=== PATIENT | female | born 1960 | race Caucasian/White ===

== ENCOUNTER 2019-10-31 21:36 | Emergency (ER) | payer OTHER, SELFPAY ==
[2019-10-31 21:37] VITALS: BP 139/73; PULSE 121; RESP 18; TEMP 37.1; O2SAT 100; BMI 42.7
--- NOTE | 2019-10-31 22:00 | RAD_ITS ---
STUDY: X-RAY CHEST REASON FOR EXAM: Female, 58 years old. PT WAS SEEN BY PCP AND HR WAS ELEVATED. BLOOD TEST ELEVATED D-DIMER. COUGH AND ELEVATED HR X 4 DAYS. TECHNIQUE: PA and lateral COMPARISON: None. FINDINGS: There appears to be mild nonspecific bilateral perihilar interstitial thickening. There is no focal infiltration.. There is no demonstrated pleural abnormality. Normal size heart. Normal mediastinum and cirilo. Normal visualized pulmonary arteries. Normal visualized aortic arch and descending thoracic aorta. Normal visualized thoracic spine. Normal visualized ribs, clavicles, and shoulders. There is no demonstrated abnormality of the visualized soft tissue structures of the upper abdomen. RAD/Chest PA and Lateral IMPRESSION: Mild nonspecific bilateral perihilar interstitial thickening. Electronically Signed: Michael Cintron MD at 22:18 EST , Service support ,
--- NOTE | 2019-10-31 23:14 | EKG12_ITS ---
Test Reason : CP Blood Pressure : / mmHG Vent. Rate : 127 BPM Atrial Rate : 127 BPM P-R Int : 138 ms QRS Dur : 070 ms QT Int : 318 ms P-R-T Axes : 028 -34 025 degrees QTc Int : 462 ms Sinus tachycardia Left axis deviation Minimal voltage criteria for LVH, may be normal variant Anterior infarct , age undetermined Abnormal ECG Confirmed by CAMDEN JEAN ([id number]), video news editor ALICIA JASON ([id number]) on 11/05/2019 2:56:47 PM Referred By: EDI Confirmed By:CAMDEN JEAN
--- NOTE | 2019-10-31 23:15 | ED.DCSUM_ITS ---
History of Present Illness Chief Complaint: Palpitations Informant: Patient Narrative: Stated that she has been having a cough for last 4 days. She has been feeling more fatigued than normal. She did get a flu shot. She is a non-smoker. She went to her doctor's office today for evaluation of that cough. She had a d- dimer done secondary to tachycardia. She found she was tachycardic in the office today. The d-dimer came back mildly elevated. Her family doctor put her on Eliquis and told her that they are planning to do an ultrasound in the future. She talked to her son at home who told her to come to the hospital for further evaluation. She denies chest pain or shortness of breath. She is on levothyroxine. She denies any pulmonary embolism risk factors. - Past Medical History (1) Microcalcification of left breast on mammography Status: Acute Past Medical History - Allergies and Home Meds Allergies/Adverse Reactions: Allergies Penicillins [PCN] Allergy (Verified 10/31/19 21:40) HIVES, DIFFICULTY BREATHING Sulfa (Sulfonamide Antibiotics) Allergy (Verified 10/31/19 21:40) Unknown red dye Adverse Reaction (Verified 10/31/19 21:40) HIVES, DIFFICULTY BREATHING Primary Care Physician: Daniel Nix DO [Primary Care Provider] - Prior records reviewed: Yes Past Medical History: - - Hypothyroidism, see problem list Surgical History: noncontributory Lives: With Family Smoking Status: Never smoker Alcohol: None Drugs: None Review of Systems General: Denies: Chills, Fever, Sweats Eyes: Denies: Visual changes - bilaterally, Diplopia ENT: Denies: Rhinorrhea, Sore throat Cardiovascular: Denies: Chest pain, Palpitations Respiratory: Reports: Cough. Denies: Dyspnea, Dyspnea on exertion Gastrointestinal: Denies: Abdominal pain, Nausea, Vomiting, Diarrhea, Melena, Hematochezia Genitourinary: Denies: Dysuria, Hematuria, Frequency Musculoskeletal: Denies: Back pain, Extremity Pain Skin: Denies: Rash, Wounds Neurological: Reports: Weakness. Denies: Headache, Numbness Physical Exam Vital Signs/Narrative: Vital Signs Temp Pulse Resp BP Pulse Ox 10/31/19 21:37 98.7 F 121 H 18 139/73 H 100 General: Well nourished, Well developed, No Acute Distress Head: Normocephalic, Atraumatic Eyes: Perrl, EOMI ENT: Moist mucous membranes, No rhinorrhea Neck: Supple, Nontender Cardiovascular: Regular rhythm, No murmurs, Tachycardia Respiratory: No distress, CTA bilaterally, Chest nontender Abdomen: Soft, Nontender, Nondistended, Normal bowel sounds Back: Nontender, Normal Inspection Extremities: Nontender, No edema Skin: Normal color, No rash Neurological: Alert, Oriented x3, Cranial nerves II-XII grossly intact, Normal Strength, Normal Sensation Psychological: Normal affect, Normal Mood Diagnostic/Tx/Re-eval - Medical Decision Making EKG obtained shows sinus tachycardia. This is from triage apparently currently she is tacky at 105. EKGs sinus tachycardia is at a rate of 127. No acute ischemic findings. No STEMI. Chest x-ray shows no acute disease. Lab work obtained. Given IV fluids. Lab work shows no significant abnormalities. Electrolytes unremarkable. CT angios shows no pulmonary embolism or other abnormalities other than interstitial prominence consistent with bronchitis. She does have a suspected hemangioma in her liver. She is going to follow-up for this as an outpatient. At this time I feel she can be discharged. I think she just has a bronchitis. Heart rate has come down into the 90s ED Disposition - Plan for ED Patient: Disposition: [facility] Hospital or Unit Diagnosis: Acute bronchitis Instructions: Acute Bronchitis Referrals: Daniel Nix DO [Primary Care Provider] - Additional Instructions: Please follow-up for your 4 cm liver lesion. We suspect a hemangioma.
[2019-10-31] MEDS: 0.9% Normal Saline 1,000 ML 1000 ML IV (23:21)
[2019-10-31 23:29] LABS: Absolute Lymphocyte Count 1.71 X10^3/uL (0.83-4.51); Basophil# 0.07 X10^3/uL; Basophil% 1.1 % (0-1); Eosinophil# 0.11 X10^3/uL; Eosinophils% 1.7 % (0-5); Hematocrit 45.2 % (37-47); Hemoglobin 14.8 g/dL (12.0-15.0); Lymphocyte # 1.71 X10^3/ul (4.0); Lymphocyte % 26.3 % (19-41); Mean Corp Hgb Conc 32.7 g/dL (32-36); Mean Corpuscular Hgb 26.4 pg (27.0-32.0); Mean Corpuscular Volume 80.7 fL (81-99); Mean Platelet Vol. 8.5 fl (6.2-12.0); Monocyte# 0.51 X10^3/uL; Monocyte% 7.8 % (0-10); NRBC Flagged by Analyzer 0 % (0-5); Neutrophil # 4.01 X10^3/uL (2.7-7.7); Neutrophil % 61.6 % (47-70); Platelet Count 240 K/mm3 (150-450); RBC Distribution Width CV 13.5 % (11.6-14.6); RBC Distribution Width SD 39.4 fl (35.1-43.9); White Blood Count 6.5 K/mm3 (4.4-11.0)
[2019-10-31 23:45] VITALS: BP 110/54; PULSE 103; RESP 18; O2SAT 92
[2019-10-31 23:55] LABS: Anion Gap 5 (5-15); BUN 10 mg/dL (7-18); BUN/Creat Ratio 10.7 RATIO (10-20); Calcium,Total 9.1 mg/dL (8.5-10.1); Chloride 108 mmol/L (98-107); Creatinine, Serum 0.94 mg/dL (0.55-1.02); EST Glomerular Filtration Rate 65 mL/min (>60); Est Glom Filt Rate - Afr Amer 79 mL/min (>60); Estimated Creatinine Clearance 57.02 ml/min; Glucose 102 mg/dL (74-106); Potassium 3.9 mmol/L (3.5-5.1); Sodium Level 140 mmol/L (136-145); Thyroid Stim Hormone (TSH) 1.16 uIU/mL (0.358-3.74)
--- NOTE | 2019-11-01 00:09 | CT_ITS ---
HISTORY: TACHYCARDIA, COUGH, ELEVATED D-DIMER, CONCERN FOR PE, SEEN AT PCP TODAY AND STARTED ON ELIQUIS TECHNIQUE: Helically acquired images were obtained of the chest following the intravenous administration of 100 ML of Isovue-370 Iodinated contrast. as per pulmonary angiogram protocol with 2D MIP reconstructions. A radiation dose optimization technique was used for this scan. COMPARISON: Chest x-ray from 2 half hours earlier FINDINGS: # of images incl. paperwork: [id number] Lungs are clear but for trace diffuse airspace and interstitial disease. No effusions. Within the thoracic spinethere is a mild kyphosis. Degenerative disc disease is present at many levels. This disease is manifest by loss of disc height, endplate sclerosis, and anterior enthesophytes. A few Schmorl's node invaginations are present at the mid to lower thoracic spine Vertebral body height is normal. Facets are well aligned. No rib lesions are perceived. Heart is not enlarged. Thoracic aorta is normal. No aneurysms, stenoses, dissections, nor occlusions. There is some mediastinal and hilar adenopathy. This is greater on the left than right No pulmonary emboli. Hepatic steatosis and hepatomegaly. Possible splenomegaly. Within the posterior aspect of the liver, not completely imaged on this study, there is a 4 cm area of slight decreased density with geographic margins. The study images through the liver are at an early arterial phase. CT/CTA Chest W/WO Contrast IMPRESSION: No pulmonary embolism, aortic aneurysm, or aortic dissection. Mild pulmonary edema. 4 cm area of hypodensity in the posterior aspect of the right hepatic lobe. This of unknown etiology. Most likely etiology is a benign hemangioma. Sequelae of trauma is possible is that is within the history such as a hepatic contusion. Additional more sinister possibilities are within the differential but considered less likely. Recommend correlation to any previous imaging of the liver. If no previous imaging of liver consider an ultrasound, or multiphase imaging of the liver to further assess. Diffuse bilateral airspace and interstitial lung disease. This of unknown etiology. Most of the time disease such as this may be some mild pulmonary edema. However, in the setting of mediastinal and hilar adenopathy, the possibility of inflammatory conditions or infectious etiologies should be considered such as bronchitis and pneumonitis. Individualized dose optimization techniques were used for this CT. at 0112 Reported and signed by: Alex Tillman MD Electronically Signed: Alex Tillman MD at 1:11 EST Tel , Service support ,
[2019-11-01 01:00] VITALS: BP 129/78; PULSE 100; RESP 24; O2SAT 92
[2019-11-01 01:51] VITALS: BP 121/83; PULSE 99; RESP 18; O2SAT 99
== END 2019-11-01 01:55 | disposition home or self-care (01) ==
PROVIDERS: Emergency Provider Emergency Medicine; Family Provider Preventive Medicine Occupational Medicine; PCP Preventive Medicine Occupational Medicine
DX: J20.9 Acute bronchitis, unspecified (principal); R74.8 Abnormal levels of other serum enzymes; D18.03 Hemangioma of intra-abdominal structures; E03.9 Hypothyroidism, unspecified; R00.0 Tachycardia, unspecified; Z88.2 Allergy status to sulfonamides; Z88.0 Allergy status to penicillin; Z79.899 Other long term (current) drug therapy
CPT/HCPCS: 71046; 71275; 80048; 84443; 84484; 85025; 87804; 93005; 96360; 96361; 99284; J7030; Q9967; A4216

== ENCOUNTER → 2019-11-09 08:44 | Outpatient (CLI) | payer OTHER, SELFPAY ==
[2019-10-31 21:37] VITALS: BMI 42.7
--- NOTE | 2019-11-09 08:47 | US_ITS ---
STUDY: ABDOMINAL ULTRASOUND - RIGHT UPPER QUADRANT REASON FOR VISIT: Female, 58 years old. Possible hepatic lesion TECHNIQUE: Ultrasound evaluation of the right upper quadrant was performed with real-time and static mead-scale imaging. TECHNICAL QUALITY: Suboptimal COMPARISON: None. FINDINGS: Examination is technically suboptimal. Ultrasound is not able to penetrate and create diagnostic images due to elevated body habitus and severe accumulation of subcutaneous fat. Some diagnostic information is available Liver: The liver measures 17.7 cm. There is elevated echogenicity of the liver. The bile ducts are within normal limits. There is hepatic color flow. The direction of portal flow is hepatopetal. There is no demonstrated mass lesion. The lesion on CT cannot be seen. Gallbladder: Surgically removed Common Bile Duct (C.B.D.): The common bile duct measures 6 mm. Pancreas: Not visualized Right Kidney: Normal size of the right kidney. The right kidney measures 11.4 x 3.8 x 5.9 cm. Normal renal cortex. The right cortex measures 1.4 cm. There is no demonstrated renal mass or cyst. There is no right hydronephrosis. US/Liver IMPRESSION: 1. Severely limited exam due to patient''s elevated BMI and body habitus. 2. Nonvisualization of hepatic lesion, refer to CT or MR. 3. Severe hepatic steatosis. Hepatology referral is advised. Electronically Signed: Rosy Worthy, at 21:03 EST Tel , Service support ,
== END ==
PROVIDERS: Family Provider Preventive Medicine Occupational Medicine; PCP Preventive Medicine Occupational Medicine; Referring Provider Preventive Medicine Occupational Medicine; Visit Provider Preventive Medicine Occupational Medicine
DX: R16.0 Hepatomegaly, not elsewhere classified (principal)
CPT/HCPCS: 76705

== ENCOUNTER → 2020-02-05 10:31 | Outpatient (CLI) | payer OTHER, SELFPAY ==
[2020-02-05 11:27] LABS: Anion Gap 7 (5-15); BUN 12 mg/dL (7-18); BUN/Creat Ratio 13.1 RATIO (10-20); Calcium,Total 8.6 mg/dL (8.5-10.1); Chloride 108 mmol/L (98-107); Cholesterol 213 mg/dL (200); Creatinine, Serum 0.91 mg/dL (0.55-1.02); EST Glomerular Filtration Rate 67 mL/min (>60); Est Glom Filt Rate - Afr Amer 81 mL/min (>60); Free T3 2.9 pg/mL (2.18-3.98); Glucose 108 mg/dL (74-106); High Density Lipoprotein 28 mg/dL; Potassium 4.1 mmol/L (3.5-5.1); Sodium Level 140 mmol/L (136-145); T4 Total, Thyroxin 8.5 ug/dL (4.8-13.9); Thyroid Stim Hormone (TSH) 1.24 uIU/mL (0.358-3.74); Triglycerides 373 mg/dL; Very Low Density Lipoprotein 75 mg/dL (5-40)
[2020-02-05 11:36] LABS: Vitamin D,25 Hydroxy 10.5 ng/mL
== END ==
PROVIDERS: PCP Family Medicine; Referring Provider Family Medicine; Visit Provider Family Medicine
DX: Z00.00 Encounter for general adult medical examination without abnormal findings (principal); E03.9 Hypothyroidism, unspecified
CPT/HCPCS: 36415; 80048; 80061; 82306; 84436; 84443; 84481

== ENCOUNTER → 2020-04-01 08:52 | Outpatient (CLI) | payer OTHER, SELFPAY ==
[2020-04-02 15:31] LABS: HPV Reflexed? NOT INDICATED
== END ==
PROVIDERS: PCP Family Medicine; Visit Provider Obstetrics & Gynecology
DX: Z12.4 Encounter for screening for malignant neoplasm of cervix (principal)
CPT/HCPCS: 88175; G0145

== ENCOUNTER → 2020-04-16 | Outpatient (CLI) | payer OTHER, SELFPAY ==
--- NOTE | 2020-04-16 14:20 | BI_ITS ---
MAMMOGRAPHY - BILATERAL SCREENING REASON FOR EXAM: Female, 59 years old. Routine annual screening examination. PERTINENT HISTORY: Grandmother with breast cancer. Aunt with breast cancer. Remote left stereotactic breast biopsy. TECHNIQUE: Digital bilateral breast damien (3D mammographic acquisition) in the CC and MLO projections. 2-D mediolateral oblique (MLO) and craniocaudad (CC) views of both breasts were obtained. CAD: Full Field Digital Mammography with Computer Added Detection was performed. COMPARISON: Comparison is made with prior operative examination dated January 24, 2017.. FINDINGS: Breast Composition: The breasts are almost entirely fatty. There are no dominant masses or suspicious calcifications. No other significant abnormalities are identified. There has been no significant change since the prior study. BI/SCREEN MAMM (CAD) W/DAMIEN BILAT IMPRESSION: Stable bilateral screening mammogram. Yearly follow-up mammogram recommended. (A) ASSESSMENT CATEGORY: BIRADS Category 1: Negative. A letter regarding these results will be sent to the patient by the facility within 30 days. Approximately 10% of breast cancers are not detected by mammography. A normal mammogram should not delay biopsy of a clinically suspicious abnormality. [id number] Electronically Signed: Tello Elliott, at 15:29 EDT , Service support ,
--- NOTE | 2020-04-16 14:29 | BD_ITS ---
STUDY: DUAL ENERGY X-RAY ABSORPTIOMETRY / DXA REASON FOR EXAM: Female, 59 years old. Age of luzmaria 54. Pat is 254.3# and 64.25 and quot;. Takes a thyroid med. Exercises a little to moderatly. Fam hx of osteo. Hx of a right foot fx. TECHNIQUE: Bone Mineral Density (BMD) measurements of lumbar spine and bilateral hips were obtained. COMPARISON: None. FINDINGS: Lumbar Spine (L1-L4): g/cm2 (1.019) / T-score (-1.3) / Z-score (-0.3) Findings are suggestive of osteopenia with a low fracture risk. Left Femur Total: g/cm2 (0.964) / T-score (-0.3) / Z-score (0.5) Left Femoral Neck: g/cm2 (0.905) / T-score (-1.0) / Z-score (0.2) Right Femur Total: g/cm2 (0.985) / T-score (-0.2) / Z-score (0.7) Right Femoral Neck: g/cm2 (0.980) / T-score (-0.4) / Z-score (0.7) BD/Dexa Bone Density Study IMPRESSION: The patient is considered as outlined below according to World Martin Organization (WHO) criteria with a fracture risk. There has been of bone density since the previous examination. Reference Information: The T-score is the number of standard deviations above or below the standard which is normal for young adults at their peak bone mineral density. The World Health Organization (WHO) interprets the T-scores as follows: Above -1 Normal bone density Between -1 and -2.5 Osteopenia Equal to / or below -2.5 Osteoporosis As a practical clinical guideline, osteopenia may be graded as follows: Mild -1 through -1.5 Moderate -1.6 through -2.0 Severe -2.1 through -2.4 The Z-score is the number of standard deviations above or below age-matched controls. A Z-score of less than -1.5 would be considered abnormal. References: 1. NIH Osteoporosis and Related Bone Diseases http://www.osteo.org 2. International Society for Clinical Densitometry http://www.iscd.org 3. National Osteoporosis Foundation http://www.nof.org Electronically Signed: Tello Elliott, at 15:22 EDT , Service support ,
== END | disposition home or self-care (01) ==
LOC: OPBD 14:17
PROVIDERS: PCP Family Medicine; Referring Provider Obstetrics & Gynecology; Visit Provider Obstetrics & Gynecology
DX: Z12.31 Encounter for screening mammogram for malignant neoplasm of breast (principal); Z13.820 Encounter for screening for osteoporosis
CPT/HCPCS: 77063; 77067; 77080

== ENCOUNTER → 2020-09-05 09:18 | Outpatient (CLI) | payer OTHER, SELFPAY ==
[2020-09-05 10:59] LABS: AST(SGOT) 36 U/L (15-37); Alanine Aminotransfer ALT/SGPT 35 U/L (13-56); Albumin, Serum 3.8 g/dL (3.2-5.0); Alkaline Phosphatase 90 U/L (45-117); Anion Gap 7 (5-15); BUN 17 mg/dL (7-18); BUN/Creat Ratio 17.7 RATIO (10-20); Calcium,Total 8.9 mg/dL (8.5-10.1); Chloride 111 mmol/L (98-107); Cholesterol 162 mg/dL (200); Creatinine, Serum 0.96 mg/dL (0.55-1.02); EST Glomerular Filtration Rate 63 mL/min (>60); Est Glom Filt Rate - Afr Amer 77 mL/min (>60); Free T3 2.8 pg/mL (2.18-3.98); Globulin 3.8 g/dL (2.2-4.2); Glucose 105 mg/dL (74-106); High Density Lipoprotein 30 mg/dL; Potassium 4.1 mmol/L (3.5-5.1); Protein, Total 7.6 g/dL (6.4-8.2); Sodium Level 141 mmol/L (136-145); T4 Free Direct 0.97 ng/dL (0.76-1.46); Thyroid Stim Hormone (TSH) 1.36 uIU/mL (0.358-3.74); Triglycerides 315 mg/dL; Very Low Density Lipoprotein 63 mg/dL (5-40)
== END ==
PROVIDERS: PCP Family Medicine; Referring Provider Family Medicine; Visit Provider Family Medicine
DX: E03.9 Hypothyroidism, unspecified (principal); E78.5 Hyperlipidemia, unspecified; E55.9 Vitamin D deficiency, unspecified
CPT/HCPCS: 36415; 80053; 80061; 82306; 84439; 84443; 84481

== ENCOUNTER 2020-12-22 19:01 | Emergency (ER) | payer OTHER, SELFPAY ==
[2020-12-22 19:03] VITALS: BP 122/90; PULSE 118; RESP 16; TEMP 35.8; O2SAT 95; BMI 38.0
--- NOTE | 2020-12-22 19:24 | ED.VISSUMM ---
- ER Visit Summary Date of Service: 12/22/20 Chief Complaint: Spontaneous left-sided atraumatic nosebleed History of Present Illness: The patient is a 60 F 3 of high cholesterol, low thyroid and depression. Patient had a nosebleed 3 years ago. But does not very often get nosebleeds. She is on no blood thinners. Had no trauma. Today about 15 minutes prior to arrival started having bleeding from the left side of her nose. No other bleeding or bruising no hematuria or melena. Physical Examination: Vital signs are stable afebrile. Initial blood pressure 122/90. Middle-aged female no acute distress active bleeding from her nares. HEENT exam bleeding from the left nares actively blood in the right nares. Blood in the posterior pharynx. No trouble breathing. Or swelling. Neck nontender no lymphadenopathy. Lungs clear to auscultation bilaterally. Heart regular rhythm no murmur. Abdomen soft nontender. Extremities moves all 4. Calves are nontender. Normal range of motion. Normal strength. Neurologically patient is awake alert with no focal motor deficits. Test Results: None Emergency Department Course and Treatment: Patient with left anterior nosebleed and blood in the right nares also. I had her blow her nose. There were no significant clots. She has significant nasal congestion. Afrin soaked cotton balls been placed in both sides of her nose. Julián exam patient is doing well I removed both Afrin-soaked cotton balls in both sides the nose the bleeding was completely stopped there is no active bleeding or current blood. Posterior pharynx is no active bleeding. I then placed a nasal tampon coated with bacitracin antibiotic ointment on the left naris. The nurses will secure that with a dressing. Patient is was instructed to remove in 3 days. Treatment Plan: Keflex 3 times daily for 3 days. Patient has an allergy to both penicillin and Bactrim. Remove nasal pack in 3 days. Follow-up with ENT. Disposition: Discharge Impression: Acute left anterior nosebleed Acute anterior nasal pack by ER This note was generated with [employer] dictation software. It may contain incorrect words, spelling, and punctuation that were not noted in review of the chart prior to signing ED Disposition - Plan for ED Patient: Referrals: Leeroy Mack MD [Primary Care Provider] -
--- NOTE | 2020-12-22 20:30 | ED.DEP ---
ED Disposition - Plan for ED Patient: Disposition: Home or Assisted Living Instructions: Nosebleed Prescriptions: Cephalexin [Keflex] 500 mg PO Q8 #9 cap Prescription Printed Referrals: Rohit Mosquera MD [STAFF PHYSICIAN] - 3-5 Days Additional Instructions: Pull the nasal pack out in 3 days which should be on Monday. You may do this herself there are follow-up with ENT Dr. Rohit Haney. While the pack is in you be placed on the antibiotic Keflex 1 pill 3 times a day to try to prevent you from a sinus infection. If bleeding restarts hold 20 minutes of direct pressure to your nose if unable to stop the bleeding return to the emergency department sometimes we need to repack this area.
[2020-12-22 20:48] VITALS: PULSE 80; RESP 16
[2020-12-22] MEDS: Oxymetazoline 0.05% 1 SPRAY SPRAY.BTL 2 SPRAY NASAL (20:50)
== END 2020-12-22 20:50 | disposition home or self-care (01) ==
PROVIDERS: Emergency Provider Emergency Medicine; PCP Family Medicine
DX: R04.0 Epistaxis (principal); E78.00 Pure hypercholesterolemia, unspecified; E03.9 Hypothyroidism, unspecified; F32.9 Major depressive disorder, single episode, unspecified; Z79.899 Other long term (current) drug therapy
CPT/HCPCS: 30901; 99282; A4216

== ENCOUNTER 2021-02-03 05:56 | Day surgery (SDC) | payer OTHER, SELFPAY ==
[2021-01-28 17:30] LABS: Hematocrit 40.5 % (37-47); Hemoglobin 13.3 g/dL (12.0-15.0); Mean Corp Hgb Conc 32.8 g/dL (32-36); Mean Corpuscular Hgb 26.9 pg (27.0-32.0); Mean Corpuscular Volume 81.8 fL (81-99); Mean Platelet Vol. 8.9 fl (6.2-12.0); Platelet Count 286 K/mm3 (150-450); RBC Distribution Width CV 13.4 % (11.6-14.6); RBC Distribution Width SD 39.4 fl (35.1-43.9); Red Blood Count 4.95 M/mm3 (4.2-5.4); White Blood Count 7.1 K/mm3 (4.4-11.0)
[2021-02-03] VITALS (8 sets, daily range): BP systolic 95–113; BP diastolic 49–72; PULSE 54–72; RESP 16–18; TEMP 35.8–36.6; O2SAT 87–97; BMI 42.5
[2021-02-03] MEDS: Lactated Ringers 1,000 ML 125 ML IV ×2 (07:00→09:35)
--- NOTE | 2021-02-03 07:16 | PCM.HPOB.BLA ---
History and Physical Date of Admission: 02/03/21 HISTORY OF PRESENT ILLNESS: On 01/28/2021, Aileen Bui, a 60 year old female 2 0 0 0 2, presented for: -- Aileen presents for Hysteroscopy, D and C, Possible Polypectomy for post menopausal bleeding. Had episode after nose bleed. US showed thickened ES with cystic structure at fundus, therefore decision for above procedure was made. MEDICAL HISTORY: 1. Hypothyroidism 2. Depression 3. Hyperlipidemia ALLERGIES: Penicillins, Difficulty breathing, red (food color) and Difficulty breathing MEDICATIONS HISTORY: Patient is also takin. paroxetine 20 mg tablet, 1 stubbs 2. Synthroid 75 mcg tablet, 1 daily 3. rosuvastatin 5 mg tablet, One pill by mouth once a day SURGICAL HISTORY: 1. T and A 2. cholecystectomy 3. 09/21/2016 Hysteroscopy, D and C, endometrial polypectomy Pia Juarez M.D. MENSTRUAL HISTORY: LMP Known?- Postmenopausal, Age Onset Menarche - 14 PAST PREGNANCIES: Total Pregnancies - 2; Full Term Pregnancies - 2; Premature - 0; Abortions, Induced - 0; Abortions, Spontaneous - 0; Ectopics - 0; Multiple Births - 0; Living Children - 2 FAMILY HISTORY: Father - FH: Diabetes mellitus type 2; Mother - Dementia/Alzheimer's; MaternalGrandparent - Carcinoma of breast; SOCIAL HISTORY: Alcohol Use - RARELY Smoking - denies smoking Drugs - denies REVIEW OF SYSTEMS: GENERAL - Denies fever, or chills SKIN - Denies skin changes EYES - Denies visual changes EARS - Denies difficulty hearing NOSE - Denies nasal congestion or bleeding MOUTH - Denies sore throat or difficulty swallowing NECK - Denies pain or swelling RESPIRATORY - Denies shortness of breath or wheezing CARDIOVASCULAR - Denies palpitations or chest pain GASTROINTESTINAL - Denies nausea, vomiting, diarrhea, constipation GENITOURINARY - Denies dysuria, frequency of urination, incontinence of urine MUSCULOSKELETAL - Denies joint or muscle pain NEUROLOGICAL - Denies localized numbness or weakness PSYCHIATRIC - Denies depression or anxiety ENDOCRINE - Denies heat or cold intolerance, weight loss or gain HEMATO-IMMUNOLOGIC - PMB BP- 130/84 Sitting, R Forearm Temp- 97.4 Taken Orally Weight- 250.40 lbs Height- 64.75 inch BMI:42.08 CONSTITUTIONAL - NAD, well nourished, and well developed SKIN - No rash, lesions, or ulcers HEENT - Normocephalic, PERRLA, EOMI NECK - No nodes, no nuchal rigidity and thyroid normal size and texture LYMPH NODES - Palpation of lymph nodes in neck and groins within normal limits LUNGS - CTA x2 without wheezes, crackles or rales CARDIAC - Regular rate and rhythm without rubs, murmurs, or gallops ABDOMEN - Without hepatosplenomegaly, distention, masses, rebound, or guarding; normal bowel sounds; no hernias EXTREMITIES - No edema or calf tenderness NEUROLOGICAL - Cranial nerves II-XII grossly intact PSYCHIATRIC - A and O to time, place, person, mood and affect ASSESSMENT: PLAN BY DIAGNOSIS: 1. Postmenopausal Bleeding Episode of 5-7 days of PMB. Hx of PMB with endometrial polyp, benign hyperplasia on pathology in 2016. US today showed thickened ES with cystic structure at fundus. With history and US findings will plan for hysteroscopy, D, possible polypectomy in OR R/B/A discussed, Risks include but are not limited to: risk of bleeding to point of transfusion, infection, injury to surrounding tissue, uterine perforation, VTE, ICU admission. Pt aware and consents signed.
--- NOTE | 2021-02-03 07:16 | PCM.OPRPT ---
Report of Operation Date of Procedure: 02/03/21 Pre-Operative Diagnosis: Endometrial polyp, postmenopausal bleeding Post-Operative Diagnosis: Endometrial polyp, postmenopausal bleeding Surgery/Procedure Performed:: Hysteroscopy, dilation and curettage, polypectomy with Symphion Description of Surgical Findings:: Excoriated vulvar area, lichen sclerosus in appearance. Grade 2 anterior prolapse. Minimal uterine descensus. Normal-appearing cervix. Large endometrial polyp extending from the right lateral/fundal region of the endometrium. Type of Anesthesia:: MAC Specimen's removed: Endometrial polyp, endometrial curettings Estimated Blood Loss (mL): 10 cc Fluids Replaced: 800 cc Description of Procedure: Patient taken to the operating room, MAC anesthesia induced. Patient placed in the dorsal lithotomy position and prepped and draped in the usual sterile fashion. Bladder drained 50 cc clear urine. Weighted speculum placed in posterior vagina and Flannery retractor utilized to visualize the cervix which was grasped with a single-tooth tenaculum. Cervix dilated. Symphion device prepped. Hysteroscope placed through the cervical canal and visualization of the entire endometrium noted as above. Left tubal ostia visualized, right was blocked by polyp. Symphion then utilized under direct visualization to remove endometrial polyp in entirety. Deviced removed. Hysteroscope removed as well. Curettage completed in 360 degree manner. Tenaculum removed, oozing noted coming from the left tenaculum site. Attempted hemostasis with pressure and silver nitrate sticks which was not successful. 1 [id number] stitch placed, hemostatic after this. Weighted speculum removed. At the end of the procedure all needle, lap, sponge counts correct x3. Fluid deficit 1500 cc, about 1000 cc were noted in the drape bag. - Admit VTE Documentation VTE Mechan Device Prophylaxis: SCD's
--- NOTE | 2021-02-03 07:17 | DCINST_ITS ---
Discharge Activity: Return to Normal Activity, May Drive, May Shower May resume sexual activity in: 4 weeks Weight Bearing Status: Weight bearing as tolerated Call your doctor if your incision/area has: Continuous Slow Oozing Call your doctor if you observe: Fever of 101 or Higher, Inability to urinate, Inability to have a bowel movement, Using more than one pad per hour, Swelling in the ankles, Chest pain, Calf discomfort, Uncontrolled pain Cleanse incision/area with: Soap & Water Allergies/Adverse Reactions: Allergies Penicillins [PCN] Allergy (Verified 01/27/21 08:00) HIVES, DIFFICULTY BREATHING Sulfa (Sulfonamide Antibiotics) Allergy (Verified 01/27/21 08:00) Unknown red dye Adverse Reaction (Verified 01/27/21 08:00) HIVES, DIFFICULTY BREATHING Medications to take at Discharge RX: Levothyroxine [Synthroid] 75 mcg PO DAILY 09/05/16 RX: Paroxetine HCl [Paxil] 20 mg PO QHS 09/05/16 Rosuvastatin Calcium [Crestor] 5 mg PO QHS 12/22/20 Cholecalciferol (Vitamin D3) [Vitamin D3] 2,000 unit PO DAILY 01/27/21 Primary Care Physician: Leeroy Mack MD [Primary Care Provider] - Test Results: Test results from this visit will be discussed in further detail at your follow- up appointment, if applicable. Please Follow Up With: Deja Rubalcava DO When: 2 weeks
--- NOTE | 2021-02-03 07:30 | EMB_PTH ---
PATIENT: WILLIAN CHANEY LOC: [facility] [place] U#:[id number] AGE/SX: 60/F ROOM: RE02/03/[address]: Dr. Deja Rubalcava DO : 1960 BED: DIS: 02/03/2021 SPEC #: [id number] RECD: 02/03/21 10:20 STATUS: RE REIvette #: [id number] [place]: 02/03/21 07:[address]: Deja Rubalcava DEPT: SURGICAL PATHOLOGY RECD BY: Karyn Lucas ENTERED: 02/03/21 12:12 SP TYPE: ENDOM BX/C OT DR: Dr. Leeroy Mack MD Tissues: Endometrium, NOS Procedures: Surgery Specimen Level IV HEADER OPERATION: Hysteroscopy, D & C Symphion, polypectomy PRE-OP DIAGNOSIS: Postmenopausal bleeding TISSUE SUBMITTED: Endometrial curettings/polyp MICROSCOPIC DIAGNOSIS Endometrial polyp and curettings: Polypoid fragments of simple hyperplasia without atypia. AM:nancy 02/04/2021 COMMENT Case has been reviewed in consultation with Dr. Mitchell who concurs with the above diagnosis. IDC:[id number] MICROSCOPIC DESCRIPTION Slides are reviewed. GROSS DESCRIPTION Received in fixative is one container labeled with the patient's name and designated endometrial curettings/polyp. The specimen consists of multiple irregular and mucoid fragments of pink-king soft tissue that in aggregate measure 6 x 3 x 0.2 cm. The specimen is totally submitted in two cassettes. / AM:nancy 02/03/21 TC:5 CPT: 19784
[2021-02-03] MEDS: Silver Nitrate (BKC) 1 EACH (07:52)
== END 2021-02-03 10:35 | disposition home or self-care (01) ==
LOC: SDC 05:59 → AC 06:00
PROVIDERS: PCP Family Medicine; Referring Provider Student in an Organized Health Care Education/Training Program; Visit Provider Student in an Organized Health Care Education/Training Program
PROC: 0UB98ZZ Excision of Uterus, Via Natural or Artificial Opening Endoscopic (ICD-10-PCS; CPT 58558; principal; 2021-02-03 07:15)
DX: N85.01 Benign endometrial hyperplasia (principal); N95.0 Postmenopausal bleeding; E03.9 Hypothyroidism, unspecified; E78.5 Hyperlipidemia, unspecified; F32.9 Major depressive disorder, single episode, unspecified; F41.9 Anxiety disorder, unspecified; Z20.822 Contact with and (suspected) exposure to COVID-19; Z79.899 Other long term (current) drug therapy
CPT/HCPCS: 00952; 58558; 36415; 85027; 86850; 86900; 86901; 87426; 88305; C9803; J7120; J2405

== ENCOUNTER → 2021-03-13 09:28 | Outpatient (CLI) | payer OTHER, SELFPAY ==
[2021-02-03 06:28] VITALS: BMI 42.5
[2021-03-13 10:35] LABS: Anion Gap 7 (5-15); BUN 15 mg/dL (7-18); Chloride 106 mmol/L (98-107); Cholesterol 161 mg/dL (200); Creatinine, Serum 0.88 mg/dL (0.55-1.02); EST Glomerular Filtration Rate 70 mL/min (>60); Est Glom Filt Rate - Afr Amer 85 mL/min (>60); Glucose 117 mg/dL (74-106); High Density Lipoprotein 34 mg/dL; Potassium 4.1 mmol/L (3.5-5.1); Sodium Level 140 mmol/L (136-145); Triglycerides 266 mg/dL; Very Low Density Lipoprotein 53 mg/dL (5-40)
[2021-03-15 08:04] LABS: Vitamin D,25 Hydroxy 41.4 ng/mL
== END ==
PROVIDERS: PCP Family Medicine; Visit Provider Family Medicine
DX: E78.5 Hyperlipidemia, unspecified (principal); E55.9 Vitamin D deficiency, unspecified
CPT/HCPCS: 36415; 80048; 80061; 82306

== ENCOUNTER → 2021-09-10 08:42 | Outpatient (CLI) | payer OTHER, SELFPAY ==
[2021-09-10 10:21] LABS: ALB/GLOB Ratio 0.9 RATIO (0.9-2.4); AST(SGOT) 35 U/L (15-37); Alanine Aminotransfer ALT/SGPT 29 U/L (13-56); Albumin, Serum 3.7 g/dL (3.2-5.0); Alkaline Phosphatase 77 U/L (45-117); Anion Gap 4 (5-15); BUN 13 mg/dL (7-18); BUN/Creat Ratio 14.7 RATIO (10-20); Calcium,Total 8.7 mg/dL (8.5-10.1); Chloride 110 mmol/L (98-107); Cholesterol 128 mg/dL (200); Creatinine, Serum 0.88 mg/dL (0.55-1.02); EST Glomerular Filtration Rate 69 mL/min (>60); Est Glom Filt Rate - Afr Amer 84 mL/min (>60); Globulin 3.9 g/dL (2.2-4.2); Glucose 110 mg/dL (74-106); High Density Lipoprotein 31 mg/dL; Potassium 4.1 mmol/L (3.5-5.1); Protein, Total 7.6 g/dL (6.4-8.2); Sodium Level 139 mmol/L (136-145); T4 Free Direct 1.09 ng/dL (0.76-1.46); Thyroid Stim Hormone (TSH) 0.37 uIU/mL (0.358-3.74); Triglycerides 172 mg/dL; Very Low Density Lipoprotein 34 mg/dL (5-40)
== END ==
PROVIDERS: PCP Family Medicine; Referring Provider Family Medicine; Visit Provider Family Medicine
DX: E03.9 Hypothyroidism, unspecified (principal); E78.5 Hyperlipidemia, unspecified
CPT/HCPCS: 36415; 80053; 80061; 84439; 84443; 84481

== ENCOUNTER → 2021-09-13 | Outpatient (CLI) | payer OTHER, SELFPAY ==
--- NOTE | 2021-09-13 14:40 | EMB_PTH ---
PATIENT: WILLIAN CHANEY LOC: [facility] U#:[id number] AGE/SX: 60/F ROOM: RE09/13/[address]: Dr. Deja Rubalcava DO : 1960 BED: DIS: 09/13/2021 SPEC #: [id number] RECD: 09/13/21 15:11 STATUS: RE REQ #: [id number] HAMILTON: 09/13/21 14:[address]: Deja Rubalcava DEPT: SURGICAL PATHOLOGY RECD BY: Dontae Salguero ENTERED: 09/14/21 08:22 SP TYPE: ENDOM BX/C TREY DR: Dr. Leeroy Mack MD Tissues: Endometrium, NOS Procedures: Surgery Specimen Level IV HEADER OPERATION: Endometrial biopsy PRE-OP DIAGNOSIS: Postmenopausal bleeding TISSUE SUBMITTED: Endometrial biopsy MICROSCOPIC DIAGNOSIS Endometrium, biopsy: Strips of benign superficial glandular mucosa. AM:nancy 09/15/2021 MICROSCOPIC DESCRIPTION Slides are reviewed. GROSS DESCRIPTION Received in fixative is one container labeled with the patient's name and designated EMB. The specimen consists of multiple fragments of hemorrhagic soft tissue that in aggregate measure 2.5 x 0.3 x 0.1 cm. The specimen is totally submitted in one cassette. / SJ:nancy 09/14/21 TC:5 CPT: 80070
== END | disposition home or self-care (01) ==
LOC: LABSPEC 14:57
PROVIDERS: PCP Family Medicine; Visit Provider Student in an Organized Health Care Education/Training Program
DX: N95.0 Postmenopausal bleeding (principal)
CPT/HCPCS: 88305

== ENCOUNTER → 2021-10-25 12:34 | Outpatient (CLI) | payer OTHER, SELFPAY ==
--- NOTE | 2021-10-25 12:37 | BI_ITS ---
MAMMOGRAPHY - BILATERAL SCREENING REASON FOR EXAM: Female, 60 years old. Routine annual screening examination. PERTINENT HISTORY: Grandmother with breast cancer. Aunt with breast cancer. Prior left stereotactic breast biopsy. TECHNIQUE: Digital bilateral breast damien (3D mammographic acquisition) in the CC and MLO projections. 2-D mediolateral oblique (MLO) and craniocaudad (CC) views of both breasts were obtained. CAD: Full Field Digital Mammography with Computer Added Detection was performed. COMPARISON: Comparison is made with prior study dated 04/16/2020. FINDINGS: Breast Composition: The breasts are almost entirely fatty. There are no dominant masses or suspicious calcifications. Stable small benign-appearing left axillary lymph nodes. No other significant abnormalities are identified. There has been no significant change since the prior study. BI/SCRN MAMM (CAD)W/DAMIEN BILAT IMPRESSION: Stable bilateral screening mammogram. Yearly follow-up mammogram recommended. (A) ASSESSMENT CATEGORY: BIRADS Category 2: Benign. A letter regarding these results will be sent to the patient by the facility within 30 days. Approximately 10% of breast cancers are not detected by mammography. A normal mammogram should not delay biopsy of a clinically suspicious abnormality. [id number] Electronically Signed: Tello Elliott MD at 14:28 EST , Service support ,
== END ==
PROVIDERS: PCP Family Medicine; Referring Provider Student in an Organized Health Care Education/Training Program; Visit Provider Student in an Organized Health Care Education/Training Program
DX: Z12.31 Encounter for screening mammogram for malignant neoplasm of breast (principal); Z80.3 Family history of malignant neoplasm of breast
CPT/HCPCS: 77063; 77067

== ENCOUNTER → 2022-03-28 | Outpatient (CLI) | payer OTHER, SELFPAY ==
[2022-03-28 08:50] LABS: ALB/GLOB Ratio 1.1 RATIO (0.9-2.4); AST(SGOT) 31 U/L (15-37); Alanine Aminotransfer ALT/SGPT 26 U/L (13-56); Albumin, Serum 3.9 g/dL (3.2-5.0); Alkaline Phosphatase 71 U/L (45-117); Anion Gap 5 (5-15); BUN 15 mg/dL (7-18); BUN/Creat Ratio 15.6 RATIO (10-20); Calcium,Total 8.9 mg/dL (8.5-10.1); Chloride 111 mmol/L (98-107); Cholesterol 148 mg/dL (200); Creatinine, Serum 0.96 mg/dL (0.55-1.02); EST Glomerular Filtration Rate 63 mL/min (>60); Est Glom Filt Rate - Afr Amer 76 mL/min (>60); Free T3 2.6 pg/mL (2.18-3.98); Globulin 3.7 g/dL (2.2-4.2); Glucose 120 mg/dL (74-106); High Density Lipoprotein 30 mg/dL; Potassium 4.1 mmol/L (3.5-5.1); Protein, Total 7.6 g/dL (6.4-8.2); Sodium Level 140 mmol/L (136-145); T4 Free Direct 1.01 ng/dL (0.76-1.46); Thyroid Stim Hormone (TSH) 0.72 uIU/mL (0.358-3.74); Triglycerides 167 mg/dL; Very Low Density Lipoprotein 33 mg/dL (5-40)
== END | disposition home or self-care (01) ==
LOC: LAB 07:45
PROVIDERS: PCP Family Medicine; Referring Provider Family Medicine; Visit Provider Family Medicine
DX: E78.5 Hyperlipidemia, unspecified (principal); E03.9 Hypothyroidism, unspecified
CPT/HCPCS: 36415; 80053; 80061; 84439; 84443; 84481

== ENCOUNTER → 2022-04-14 | Outpatient (CLI) | payer OTHER, SELFPAY ==
--- NOTE | 2022-04-14 11:30 | EMB_PTH ---
PATIENT: WILLIAN CHANEY [facility]: [facility] U#:[id number] AGE/SX: 61/F ROOM: RE04/14/[address]: Dr. Deja Rubalcava DO : 1960 BED: DIS: 04/14/2022 SPEC #: [id number] RECD: 04/14/22 13:37 STATUS: RE REQ #: [id number] HAMILTON: 04/14/22 11:[address]: Deja Rubalcava DEPT: SURGICAL PATHOLOGY RECD BY: Karyn Lucas ENTERED: 04/14/22 13:42 SP TYPE: ENDOM BX/C TREY DR: Dr. Leeroy Mack MD Tissues: Endometrium, NOS Procedures: Surgery Specimen Level IV HEADER OPERATION: Endometrial biopsy PRE-OP DIAGNOSIS: Benign endometrial hyperplasia TISSUE SUBMITTED: Endometrial biopsy MICROSCOPIC DIAGNOSIS Endometrial biopsy: Strips of benign endometrial epithelium, consistent with atrophic endometrium. Negative for hyperplasia. See comment. SJ:nancy 04/15/2022 COMMENT Clinical correlation and appropriate follow up are necessary. Please make reference to previous specimens ([id number]) endometrial polyp and curettings with diagnosis of ?polypoid fragments of simple hyperplasia without atypia? and ([id number]) endometrium, biopsy with diagnosis of ?strips of benign superficial glandular mucosa.? MICROSCOPIC DESCRIPTION Slides are reviewed. GROSS DESCRIPTION Received in fixative is one container labeled with the patient's name and designated endometrial biopsy. The specimen consists of multiple fragments of hemorrhagic soft tissue that in aggregate measure 1.5 x 1 x 0.1 cm. The specimen is totally submitted in one cassette. / KIARA:nancy 04/14/2022 TC:4 CPT: 66795
== END | disposition home or self-care (01) ==
PROVIDERS: PCP Family Medicine; Visit Provider Student in an Organized Health Care Education/Training Program
DX: N85.01 Benign endometrial hyperplasia (principal)
CPT/HCPCS: 88305

== ENCOUNTER → 2022-10-04 | Outpatient (CLI) | payer BC, SELFPAY ==
[2022-10-04 13:13] LABS: Anion Gap 7 (5-15); BUN 13 mg/dL (7-18); BUN/Creat Ratio 14.9 RATIO (10-20); Calcium,Total 9.3 mg/dL (8.5-10.1); Chloride 106 mmol/L (98-107); Creatinine, Serum 0.87 mg/dL (0.55-1.02); EST Glomerular Filtration Rate 70 mL/min (>60); Est Glom Filt Rate - Afr Amer 85 mL/min (>60); Free T3 2.7 pg/mL (2.18-3.98); Glucose 113 mg/dL (74-106); Potassium 4.3 mmol/L (3.5-5.1); Sodium Level 140 mmol/L (136-145); T4 Free Direct 0.88 ng/dL (0.76-1.46); Thyroid Stim Hormone (TSH) 1.47 uIU/mL (0.358-3.74)
== END | disposition home or self-care (01) ==
LOC: MFPLAB 09:47
PROVIDERS: PCP Family Medicine; Referring Provider Family Medicine; Visit Provider Family Medicine
DX: E03.9 Hypothyroidism, unspecified (principal); R73.9 Hyperglycemia, unspecified
CPT/HCPCS: 36415; 80048; 84439; 84443; 84481

== ENCOUNTER → 2023-02-25 | Outpatient (CLI) | payer OTHER, SELFPAY ==
[2023-02-25 10:25] LABS: Absolute Lymphocyte Count 2.67 X10^3/uL (0.83-4.51); Absolute Neutrophil Count 4.9 X10^3/uL (2.0-7.7); Basophil% 1.2 % (0-1); Eosinophil# 0.08 X10^3/uL; Hematocrit 42.3 % (37-47); Hemoglobin 13.8 g/dL (12.0-15.0); Lymphocyte # 2.67 X10^3/ul (0.83-4.51); Lymphocyte % 32.8 % (19-41); Mean Corp Hgb Conc 32.6 g/dL (32-36); Mean Corpuscular Hgb 26.7 pg (27.0-32.0); Monocyte# 0.38 X10^3/uL; Monocyte% 4.7 % (0-10); NRBC Flagged by Analyzer 0 % (0-5); Neutrophil # 4.85 X10^3/uL (2.7-7.7); Neutrophil % 59.7 % (47-70); Platelet Count 275 K/mm3 (150-450); RBC Distribution Width CV 13.3 % (11.6-14.6); RBC Distribution Width SD 39.5 fl (35.1-43.9); Red Blood Count 5.16 M/mm3 (4.2-5.4); White Blood Count 8.1 K/mm3 (4.4-11.0)
[2023-02-25 10:33] LABS: Erythrocyte Sedimentation Rate 14 mm/hr (0-30)
[2023-02-25 10:50] LABS: AST(SGOT) 36 U/L (15-37); Alanine Aminotransfer ALT/SGPT 37 U/L (13-56); Albumin, Serum 3.8 g/dL (3.2-5.0); Alkaline Phosphatase 73 U/L (45-117); Bilirubin, Direct 0.18 mg/dL (0.00-0.30); Creatinine, Serum 0.82 mg/dL (0.55-1.02); EST Glomerular Filtration Rate 76 mL/min (>60); Est Glom Filt Rate - Afr Amer 92 mL/min (>60); Globulin 3.3 g/dL (2.2-4.2); Protein, Total 7.1 g/dL (6.4-8.2); Rheumatoid Factor < 10.0 IU/mL (<15); Uric Acid 6.5 mg/dL (2.6-6.0)
[2023-02-26 02:01] LABS: Thyroid Stim Hormone (TSH) 0.89 uIU/mL (0.358-3.74)
[2023-02-27 08:23] LABS: Vitamin D,25 Hydroxy 70.2 ng/mL
[2023-02-28 22:06] LABS: Thyroid Peroxidase AB < 9 IU/mL (0-34)
== END | disposition home or self-care (01) ==
LOC: LAB 09:37
PROVIDERS: PCP Family Medicine; Visit Provider Specialist
DX: L50.1 Idiopathic urticaria (principal); T78.3XXD Angioneurotic edema, subsequent encounter; E55.9 Vitamin D deficiency, unspecified; E07.9 Disorder of thyroid, unspecified
CPT/HCPCS: 36415; 80076; 82306; 82565; 83520; 84443; 84550; 85025; 85652; 86038; 86376; 86431

== ENCOUNTER → 2023-05-13 | Outpatient (CLI) | payer OTHER, SELFPAY ==
[2023-05-13 10:14] LABS: Cholesterol 138 mg/dL (200); Free T3 2.7 pg/mL (2.18-3.98); High Density Lipoprotein 29 mg/dL; Thyroid Stim Hormone (TSH) 0.88 uIU/mL (0.358-3.74); Triglycerides 236 mg/dL; Very Low Density Lipoprotein 47 mg/dL (5-40)
== END | disposition home or self-care (01) ==
LOC: LAB 08:47
PROVIDERS: PCP Family Medicine; Referring Provider Family Medicine; Visit Provider Family Medicine
DX: E03.9 Hypothyroidism, unspecified (principal); E78.5 Hyperlipidemia, unspecified
CPT/HCPCS: 36415; 80061; 84439; 84443; 84481

== ENCOUNTER → 2023-10-11 | Outpatient (CLI) | payer OTHER, SELFPAY ==
[2023-10-11 12:01] LABS: ALB/GLOB Ratio 1.1 RATIO (0.9-2.4); AST(SGOT) 36 U/L (15-37); Alanine Aminotransfer ALT/SGPT 32 U/L (13-56); Alkaline Phosphatase 71 U/L (45-117); Anion Gap 9 (5-15); BUN 15 mg/dL (7-18); BUN/Creat Ratio 17.2 RATIO (10-20); Calcium,Total 8.7 mg/dL (8.5-10.1); Chloride 106 mmol/L (98-107); Cholesterol 122 mg/dL (200); Creatinine, Serum 0.87 mg/dL (0.55-1.02); EST Glomerular Filtration Rate 70 mL/min (>60); Est Glom Filt Rate - Afr Amer 85 mL/min (>60); Free T3 2.6 pg/mL (2.18-3.98); Globulin 3.5 g/dL (2.2-4.2); Glucose 104 mg/dL (74-106); High Density Lipoprotein 34 mg/dL; Potassium 4.4 mmol/L (3.5-5.1); Protein, Total 7.5 g/dL (6.4-8.2); Sodium Level 139 mmol/L (136-145); T4 Free Direct 0.97 ng/dL (0.76-1.46); Thyroid Stim Hormone (TSH) 0.81 uIU/mL (0.358-3.74); Triglycerides 161 mg/dL; Very Low Density Lipoprotein 32 mg/dL (5-40)
== END | disposition home or self-care (01) ==
LOC: MTLAB 09:19
PROVIDERS: PCP Family Medicine; Referring Provider Family Medicine; Visit Provider Family Medicine
DX: E03.9 Hypothyroidism, unspecified (principal); E78.5 Hyperlipidemia, unspecified
CPT/HCPCS: 36415; 80053; 80061; 84439; 84443; 84481

== ENCOUNTER → 2023-10-23 | Outpatient (CLI) | payer OTHER, SELFPAY ==
--- NOTE | 2023-10-23 09:34 | BI_ITS ---
MAMMOGRAPHY - BILATERAL SCREENING REASON FOR EXAM: Female, 62 years old. Routine annual screening examination. PERTINENT HISTORY: Grandmother with breast cancer. Aunt with breast cancer. Prior left stereotactic breast biopsy. TECHNIQUE: Digital bilateral breast damien (3D mammographic acquisition) in the CC and MLO projections. 2-D mediolateral oblique (MLO) and craniocaudad (CC) views of both breasts were obtained. CAD: Full Field Digital Mammography with Computer Added Detection was performed. COMPARISON: Comparison is made with prior study dated October 25, 2021 and April 16, 2020. FINDINGS: Breast Composition: The breasts are almost entirely fatty. There are no dominant masses or suspicious calcifications. Stable small benign-appearing bilateral axillary lymph nodes. A tissue clip marker is seen along the anterior upper lateral aspect of the left breast. No other significant abnormalities are identified. There has been no significant change since the prior study. BI/SCRN MAMM (CAD)W/DAMIEN BILAT IMPRESSION: Stable bilateral screening mammogram. Yearly follow-up mammogram recommended. (A) ASSESSMENT CATEGORY: BIRADS Category 2: Benign. A letter regarding these results will be sent to the patient by the facility within 30 days. Approximately 10% of breast cancers are not detected by mammography. A normal mammogram should not delay biopsy of a clinically suspicious abnormality. [id number] Electronically Signed: Tello Elliott MD at 10:40 EST ,
== END | disposition home or self-care (01) ==
LOC: OPBI 09:33
PROVIDERS: PCP Family Medicine; Referring Provider Family Medicine; Visit Provider Family Medicine
DX: Z12.31 Encounter for screening mammogram for malignant neoplasm of breast (principal)
CPT/HCPCS: 77063; 77067

== ENCOUNTER → 2024-04-03 | Outpatient (CLI) | payer OTHER, SELFPAY ==
[2024-04-03 13:11] LABS: Free T3 2.5 pg/mL (2.18-3.98); T4 Free Direct 0.94 ng/dL (0.76-1.46)
== END | disposition home or self-care (01) ==
LOC: MFPLAB 10:39
PROVIDERS: PCP Family Medicine; Visit Provider Family Medicine
DX: E03.9 Hypothyroidism, unspecified (principal)
CPT/HCPCS: 36415; 84439; 84443; 84481

== ENCOUNTER → 2024-10-02 | Outpatient (CLI) | payer OTHER, SELFPAY ==
[2024-10-02 12:31] LABS: Free T3 2.3 pg/mL (2.18-3.98); T4 Free Direct 0.87 ng/dL (0.76-1.46)
== END | disposition home or self-care (01) ==
LOC: MFPLAB 10:41
PROVIDERS: PCP Family Medicine; Visit Provider Family Medicine
DX: E03.9 Hypothyroidism, unspecified (principal)
CPT/HCPCS: 36415; 84439; 84443; 84481

== ENCOUNTER → 2024-10-25 | Outpatient (CLI) | payer OTHER, SELFPAY | END | disposition home or self-care (01) | LOC: LAB 12:01 | PROVIDERS: PCP Family Medicine; Referring Provider Family Medicine; Visit Provider Family Medicine | DX: R32 Unspecified urinary incontinence (principal) | CPT/HCPCS: 81002; 87077; 87086; 87088 ==

== ENCOUNTER → 2025-05-07 | Outpatient (CLI) | payer OTHER, SELFPAY ==
[2025-05-07 13:25] LABS: Anion Gap 12 (5-15); BUN 14 mg/dL (4-19); BUN/Creat Ratio 16.4 RATIO (10-20); Calcium,Total 9.2 mg/dL (7.6-11.0); Carbon Dioxide 22.0 mmol/L (21.0-32.0); Chloride 106 mmol/L (98-108); Cholesterol 154 mg/dL (<=200); Glucose 112 mg/dL (70-99); Low Density Lipoprotein Calc. 76 mg/dL; Potassium 4.4 mmol/L (3.3-5.1); Triglycerides 227 mg/dL; Very Low Density Lipoprotein 45 mg/dL (5-40); cholesterol:hdl ratio screen 4.78
[2025-05-07 13:54] LABS: Free T3 3.0 pg/mL (2.18-3.98)
== END | disposition home or self-care (01) ==
LOC: MTLAB 09:50
PROVIDERS: PCP Family Medicine; Referring Provider Family Medicine; Visit Provider Family Medicine
DX: E03.9 Hypothyroidism, unspecified (principal); R73.9 Hyperglycemia, unspecified
CPT/HCPCS: 36415; 80048; 80061; 84439; 84443; 84481

== ENCOUNTER → 2025-10-01 | Outpatient (CLI) | payer OTHER, SELFPAY ==
--- NOTE | 2025-10-01 14:11 | BI_ITS ---
EXAM: SCRN MAMM (CAD)W/DAMIEN BILAT DATE: 10/01/2025 CLINICAL HISTORY: F, Age 64 y/o , SCREEN Grandmother with breast cancer. Aunt with breast cancer. Prior left stereotactic breast biopsy. TECHNIQUE: Procedure Code: [id number] Modality: MG Procedure: SCRN MAMM (CAD)W/DAMIEN BILAT COMPARISON: Prior exam(s) dated October 23, 2023.. FINDINGS: TISSUE DENSITY: The breasts are almost entirely fatty. Bilateral Breast Mammographic Findings: No significant masses, calcifications or other abnormalities are identified. Stable small bilateral axillary lymph nodes. Once again, a tissue clip marker is seen in the anterior upper lateral aspect of the left breast. No suspicious masses, areas of developing architectural distortion, or suspicious calcifications. There has been no significant interval change. BI/SCRN MAMM (CAD)W/DAMIEN BILAT IMPRESSION: Stable bilateral screening mammogram. OVERALL FINAL ASSESSMENT BI-RADS 2: BENIGN RECOMMENDATION: Routine annual follow-up in 1 Year Additional Recommendation none A letter with findings and recommendations will be mailed to the patient. Reading Location: [place] [address]
== END | disposition home or self-care (01) ==
LOC: OPBI 14:09
PROVIDERS: PCP Family Medicine; Referring Provider Family Medicine; Visit Provider Family Medicine
DX: Z12.31 Encounter for screening mammogram for malignant neoplasm of breast (principal); M25.521 Pain in right elbow
CPT/HCPCS: 77063; 77067